=== PATIENT | female | born 1990 | race Caucasian/White ===

== ENCOUNTER 2021-12-19 16:28 | Emergency (ER) | payer MEDICAID ==
[~2021-12-19] VITALS: Ht 154.9 cm; Wt 59.1 kg
[2021-12-19 16:32] VITALS: BP 134/96
[2021-12-19] MEDS ORDERED: dexamethasone sod phosphate 10mg/ml inj IV STA (16:53)
[2021-12-19] MEDS ORDERED: diphenhydrAMINE 50 mg/ml inj IV ONE (16:55)
[2021-12-19] MEDS ORDERED: acetaminophen 325mg tablet PO ONE (16:55)
[2021-12-19] MEDS ORDERED: epiNEPHrine 1 mg/ml inj SQ PRN (16:55)
[2021-12-19] MEDS ORDERED: ibuprofen tablet 400 MG TABLET PO ONE (16:55)
[2021-12-19] MEDS ORDERED: famotidine/PF 10 mg/ml inj IV ONE (16:55)
[2021-12-19] MEDS ORDERED: famotidine 20mg tablet PO ONE (17:10)
[2021-12-19] MEDS ORDERED: diphenhydrAMINE 25mg capsule PO ONE (17:10)
[2021-12-19] MEDS ORDERED: dexamethasone 4mg tablet PO ONE (17:10)
[2021-12-19] MEDS ORDERED: HYDR-3964 PO (17:24)
[2021-12-19] MEDS ORDERED: ONDA4TAB12 PO (17:24)
[2021-12-19] MEDS ORDERED: EPIN0.3P3 IJ (17:42)
[2021-12-19] MEDS ORDERED: PRED20TA PO (17:42)
== END 2021-12-19 18:01 | disposition home or self-care (01) ==
LOC: ER 16:29
DX: T78.40XA Allergy, unspecified, initial encounter (principal); M79.643 Pain in unspecified hand; Z88.0 Allergy status to penicillin; Z79.899 Other long term (current) drug therapy; Y92.89 Other specified places as the place of occurrence of the external cause
CPT/HCPCS: 96372; 99284; J0171; Q0163